=== PATIENT | female | born 1960 | race Hispanic/Latino ===

== ENCOUNTER → 2023-02-19 14:11 | Outpatient (CLI) | payer OTHER, SELFPAY ==
[2023-02-19 14:36] LABS: Add Manual Diff / Slide Review NO; Basophils Absolute Auto 100 /uL (0-100); Basophils Percent Auto 0.7 % (0-2); Eosinophils Absolute Auto 200 /uL (0-450); Eosinophils Percent Auto 2.2 % (2-4); Hematocrit 47.5 % (36-46); Lymphocytes Absolute Auto 2000 /uL (1100-4500); Lymphocytes Percent Auto 25.2 % (25-40); Mean Corpuscular HGB Conc 33.7 % (30-36); Mean Corpuscular Hemoglobin 31.9 PG (26-34); Mean Corpuscular Volume 94.5 fL (80-100); Monocytes Absolute Auto 700 /uL (0-900); Monocytes Percent Auto 8.4 % (3-14); Neutrophils Absolute Auto 5100 /uL (1500-7000); Neutrophils Percent Auto 63.5 % (50-75); Platelet Count 283 X10^3/uL (150-400); Red Blood Cell Count 5.02 X10^6/uL (4.0-5.2); Red Cell Distribution Width 13.7 % (11.6-14.8)
[2023-02-19 14:59] LABS: Alanine Aminotransferase 31 IU/L (<35); Albumin 4.5 g/dL (3.5-5.0); Albumin Globulin Ratio 1.3 (1.0-2.8); Alkaline Phosphatase 61 U/L (38-126); Aspartate Aminotransferase 30 IU/L (14-36); BUN Creatinine Ratio 21.5 (6-22); Bilirubin Total 1.2 mg/dL (0.2-1.3); Blood Urea Nitrogen 17 mg/dL (7-17); Calcium 9.5 mg/dL (8.4-10.2); Carbon Dioxide 29 mmol/L (22-32); Chloride 99 mmol/L (98-107); Cholesterol 225 mg/dL (140-199); Estimated Glomerular Filt Rate > 60 mL/min (>60); Globulin 3.4 g/dL (1.7-4.1); Glucose 103 mg/dL (80-110); HDL Cholesterol 80 mg/dL (40-60); HEMOLYSIS 23 (0-50); LDL Cholesterol Calculated 123 mg/dL (<100); Potassium 4.2 mmol/L (3.4-5.1); Sodium 138 mmol/L (137-145); Total Protein 7.9 g/dL (6.3-8.2); Triglycerides 111 mg/dL (35-150)
[2023-02-19 15:29] LABS: TSH w/ Reflex to FT4 3.08 uIU/mL (0.47-4.68)
[2023-02-20 02:36] LABS: x Labcorp Estim. Avg Glu (eAG) 117 mg/dL (.); x Labcorp Hemoglobin A1c 5.7 % (4.8-5.6)
== END ==
PROVIDERS: PCP Family Medicine; Referring Provider Family Medicine; Visit Provider Family Medicine
DX: E03.9 Hypothyroidism, unspecified (principal); E78.5 Hyperlipidemia, unspecified; F32.A Depression, unspecified; F41.1 Generalized anxiety disorder; I10 Essential (primary) hypertension; R00.2 Palpitations
CPT/HCPCS: 36415; 80053; 80061; 83036; 84443; 85025; 93005; 93010

== ENCOUNTER → 2023-03-04 09:55 | Outpatient (CLI) | payer OTHER, SELFPAY | PROVIDERS: PCP Family Medicine; Referring Provider Family Medicine; Visit Provider Family Medicine | DX: R00.2 Palpitations (principal) | CPT/HCPCS: 93246 ==

== ENCOUNTER → 2024-02-20 11:26 | Outpatient (CLI) | payer OTHER, SELFPAY ==
[2024-02-20 12:39] LABS: Hematocrit 45.6 % (36-46); Mean Corpuscular HGB Conc 32.9 % (30-36); Mean Corpuscular Hemoglobin 30.8 PG (26-34); Mean Corpuscular Volume 93.7 fL (80-100); Platelet Count 258 X10^3/uL (150-400); Red Blood Cell Count 4.87 X10^6/uL (4.0-5.2); Red Cell Distribution Width 13.8 % (11.6-14.8); White Blood Cell Count 8.6 X10^3/uL (4.5-11.0)
[2024-02-20 13:11] LABS: Hemoglobin A1C% w Est Avg Glu 6.1 % (4.0-6.0)
[2024-02-20 13:23] LABS: Neutrophils Absolute Manual 4644 /uL (3000-5900); RBC Morphology Normal Morphology; Total Cells Counted 100
[2024-02-20 14:08] LABS: Alanine Aminotransferase 36 IU/L (<35); Albumin 4.6 g/dL (3.5-5.0); Albumin Globulin Ratio 1.5 (1.0-2.8); Alkaline Phosphatase 67 U/L (38-126); Aspartate Aminotransferase 33 IU/L (14-36); Bilirubin Total 0.9 mg/dL (0.2-1.3); Blood Urea Nitrogen 23 mg/dL (7-17); Calcium 9.5 mg/dL (8.4-10.2); Carbon Dioxide 29 mmol/L (22-32); Chloride 105 mmol/L (98-107); Cholesterol 185 mg/dL (140-199); Estimated Glomerular Filt Rate > 60 mL/min (>60); Glucose 105 mg/dL (80-110); HDL Cholesterol 56 mg/dL (40-60); HEMOLYSIS < 15 (0-50); LDL Cholesterol Calculated 102 mg/dL (<100); Lipase 142 U/L (23-300); Potassium 4.2 mmol/L (3.4-5.1); Sodium 140 mmol/L (137-145); Total Protein 7.6 g/dL (6.3-8.2); Triglycerides 134 mg/dL (35-150)
[2024-02-20 14:26] LABS: TSH w/ Reflex to FT4 0.36 uIU/mL (0.47-4.68)
[2024-02-20 14:50] LABS: Free T4, Direct Thyroxine 1.72 ng/dL (0.78-2.19)
[2024-02-20 16:47] LABS: HIV 1 & 2 Ab/Ag 4th Gen Combo NEGATIVE (NEGATIVE); Hep C Virus Ab w/Reflex Quant NEGATIVE s/c (NEGATIVE)
== END ==
PROVIDERS: PCP Family Medicine; Referring Provider Family Medicine; Visit Provider Family Medicine
DX: Z11.59 Encounter for screening for other viral diseases (principal); Z11.4 Encounter for screening for human immunodeficiency virus [HIV]; Z00.00 Encounter for general adult medical examination without abnormal findings; R73.01 Impaired fasting glucose; I10 Essential (primary) hypertension; F41.1 Generalized anxiety disorder; E03.9 Hypothyroidism, unspecified
CPT/HCPCS: 36415; 80053; 80061; 83036; 83690; 84439; 84443; 85025; 86803; 87389

== ENCOUNTER → 2024-06-26 10:43 | Outpatient (CLI) | payer OTHER, SELFPAY ==
--- NOTE | 2024-06-26 10:44 | DI.US.S_ITS ---
PROCEDURE: US PELVIC COMPLETE INDICATIONS: THICKENED ENDOMETRIUM ON OUTSIDE CT TECHNIQUE: Real-time scanning was performed of the pelvic organs, with image documentation. Additional endovaginal scanning was necessary due to incomplete visualization of the adnexal and endometrial structures by transabdominal scanning. COMPARISON: Outside Facility, CT, CT ABDOMEN PELVIS W CON, 03/25/2024, 10:02. FINDINGS: Uterus: Uterus is retroverted and normal in size at 5.6 x 4.5 x 3.5 cm. The myometrium is homogeneous. The endometrium measures 6 mm combined thickness. A few uterine fibroids. For example: -Mid anterior intramural 2.2 x 2.1 x 1.6 cm. -Right anterior intramural fibroid 1.5 x 1.4 x 1.3 cm. -Mid anterior intramural fibroid 1.8 x 1.7 x 1.6 cm. Ovaries: The right ovary measures 1.4 x 1 x 0.8 cm, with a calculated ovarian volume of 6 cc. Less than 12 ovarian follicles. The left ovary ovary is not seen. Other: No pathologic free abdominal or pelvic fluid. IMPRESSION: 1. Endometrium measures 6 mm in this postmenopausal patient. Minimally thickened. -Endometrial biopsy should be considered. 2. Several small uterine fibroids. A larger fibroid measuring 2.2 cm. 3. Left ovary is not identified. No significant ovarian cyst seen. We strive to produce accurate, complete, and clear reports of imaging services. To assist us in improving patient care, this report was composed using standard report templates and voice recognition software. Therefore, it may contain abnormal punctuation, insertions and/or omissions. Occasional wrong-word or sound-alike substitutions may occur. Though we review the report and make efforts to correct it, we do recommend that the report be read carefully in proper context to recognize any text inaccuracies. Dictated by: Jarad Wills M.D. on 06/26/2024 at 15:31 Approved by: Jarad Wills M.D. on 06/26/2024 at 15:37
== END ==
PROVIDERS: PCP Family Medicine; Referring Provider Family Medicine; Visit Provider Family Medicine
DX: D25.1 Intramural leiomyoma of uterus (principal); R93.89 Abnormal findings on diagnostic imaging of other specified body structures
CPT/HCPCS: 76830; 76856

== ENCOUNTER → 2024-07-08 14:23 | Outpatient (CLI) | payer OTHER, SELFPAY ==
[2024-07-08 16:38] LABS: Influenza A - CEPHEID Flu A NEGATIVE (NEGATIVE); Influenza B - CEPHEID Flu B NEGATIVE (NEGATIVE); Respiratory Syncytial Virus Negative (Negative)
[2024-07-08 16:47] LABS: COVID-19 CEPHEID 4-PLEX PCR POSITIVE (Negative)
== END ==
PROVIDERS: PCP Family Medicine; Visit Provider Nurse Practitioner Family
DX: R05.1 Acute cough (principal)
CPT/HCPCS: 0241U; 87070

== ENCOUNTER → 2025-02-26 11:02 | Outpatient (CLI) | payer OTHER, SELFPAY ==
[2025-02-26 12:14] LABS: Add Manual Diff / Slide Review NO; Basophils Absolute Auto 100 /uL (0-100); Eosinophils Absolute Auto 200 /uL (0-450); Eosinophils Percent Auto 2.8 % (2-4); Hematocrit 43.8 % (36-46); Hemoglobin 15.1 g/dL (12.0-16.0); Lymphocytes Absolute Auto 1700 /uL (1100-4500); Lymphocytes Percent Auto 22.3 % (25-40); Mean Corpuscular HGB Conc 34.5 % (30-36); Mean Corpuscular Hemoglobin 31.9 PG (26-34); Mean Corpuscular Volume 92.4 fL (80-100); Monocytes Absolute Auto 600 /uL (0-900); Monocytes Percent Auto 8.1 % (3-14); Neutrophils Absolute Auto 5100 /uL (1500-7000); Neutrophils Percent Auto 65.8 % (50-75); Platelet Count 258 X10^3/uL (150-400); Red Blood Cell Count 4.74 X10^6/uL (4.0-5.2); Red Cell Distribution Width 13.6 % (11.6-14.8); White Blood Cell Count 7.8 X10^3/uL (4.5-11.0)
[2025-02-26 12:21] LABS: Hemoglobin A1C% w Est Avg Glu 5.4 % (4.0-6.0)
[2025-02-26 12:37] LABS: Alanine Aminotransferase 43 IU/L (<35); Albumin 4.6 g/dL (3.5-5.0); Albumin Globulin Ratio 1.6 (1.0-2.8); Alkaline Phosphatase 86 U/L (38-126); Aspartate Aminotransferase 42 IU/L (14-36); BUN Creatinine Ratio 21.1 (6-22); Bilirubin Total 1.1 mg/dL (0.2-1.3); Blood Urea Nitrogen 20 mg/dL (7-17); Calcium 9.8 mg/dL (8.4-10.2); Carbon Dioxide 28 mmol/L (22-32); Chloride 102 mmol/L (98-107); Cholesterol 218 mg/dL (140-199); Estimated Glomerular Filt Rate > 60 mL/min (>60); Globulin 2.8 g/dL (1.7-4.1); Glucose 94 mg/dL (70-99); HDL Cholesterol 90 mg/dL (40-60); HEMOLYSIS < 15 (0-50); LDL Cholesterol Calculated 106 mg/dL (<100); Potassium 4.7 mmol/L (3.4-5.1); Sodium 138 mmol/L (137-145); Total Protein 7.4 g/dL (6.3-8.2); Triglycerides 109 mg/dL (35-150)
[2025-02-26 13:01] LABS: TSH w/ Reflex to FT4 0.03 uIU/mL (0.47-4.68)
[2025-02-26 13:26] LABS: Free T4, Direct Thyroxine 1.77 ng/dL (0.78-2.19)
== END ==
PROVIDERS: PCP Family Medicine; Referring Provider Family Medicine; Visit Provider Family Medicine
DX: Z00.00 Encounter for general adult medical examination without abnormal findings (principal); R73.01 Impaired fasting glucose; E03.9 Hypothyroidism, unspecified; I10 Essential (primary) hypertension; E78.5 Hyperlipidemia, unspecified; T14.8XXA Other injury of unspecified body region, initial encounter
CPT/HCPCS: 36415; 80053; 80061; 83036; 84439; 84443; 85025

== ENCOUNTER → 2025-04-08 13:34 | Outpatient (CLI) | payer OTHER, SELFPAY ==
[2025-04-08 15:16] LABS: Erythrocyte Sedimentation Rate 1 MM/HR (0-20)
[2025-04-08 15:21] LABS: C-Reactive Protein Quant < 0.5 mg/dL (<1.0); Creatine Kinase 39 U/L (30-135); Rheumatoid Factor 14.5 IU/mL (<12.0)
[2025-04-08 15:35] LABS: Free T3, Triiodothyronine Free 3.55 pg/mL (2.77-5.27); Free T4, Direct Thyroxine 1.52 ng/dL (0.78-2.19)
[2025-04-08 15:49] LABS: Thyroid Stimulating Hormone 0.223 uIU/mL (0.47-4.68)
[2025-04-12 14:11] LABS: CCP Antibodies IgG/IgA 0 units (0-19)
[2025-04-15 13:12] LABS: ANA Screen, IFA Positive (.)
== END ==
PROVIDERS: PCP Family Medicine; Referring Provider Family Medicine; Visit Provider Family Medicine
DX: E03.8 Other specified hypothyroidism (principal); M25.50 Pain in unspecified joint; M79.10 Myalgia, unspecified site
CPT/HCPCS: 36415; 82550; 84439; 84443; 84481; 85651; 86038; 86140; 86200; 86430

== ENCOUNTER 2025-05-03 08:47 | Day surgery (SDC) | payer OTHER, SELFPAY ==
[2025-05-03 09:07] VITALS: BP 131/91; PULSE 88; RESP 18; TEMP 36.4; O2SAT 96
--- NOTE | 2025-05-03 09:17 | EKG_ITS ---
[facility] [address] [place] [id number] Test Date: 2025-05-03 Pat Name: Anne Yuan Department: [facility] Room: Gender: Female Cold Header: KARTHIK : 1960 Requested By: Order Number: [id number] Reading MD: Cordell Reynolds MD Measurements Intervals [place] Rate: 62 P: 42 UT: 132 QRS: 14 QRSD: 90 T: 41 QT: 412 QTc: 418 Interpretive Statements Normal sinus rhythm with sinus arrhythmia Minimal voltage criteria for LVH, may be normal variant ( R in aVL ) Electronically Signed On 05-03-2025 10:01:35 PDT by Cordell Reynolds MD
[2025-05-03] MEDS: LACTATED RINGERS 1,000 ML 42 ML IV (09:33)
--- NOTE | 2025-05-03 09:48 | P.HP_ITS ---
History of Present Illness History of Present Illness Date Patient Seen: 05/03/25 Chief complaint: Colonoscopy Narrative: Colorectal cancer screening FOR[facility] Medical History (Updated 03/12/25 @ 15:39 by Polo Lubin MD) IFG (impaired fasting glucose) Heavy menstrual period Irritable bowel syndrome (~2020) Diverticular disease (~2021) Colon polyps (~2020) Deep vein thrombosis (~1991) EVELYN (generalized anxiety disorder) Depression (~1996) Hypothyroidism (~2006) Hyperlipidemia Benign essential HTN Palpitations Surgical History Anesthesia History of colonoscopy (~11/21/20) History of endoscopy (~11/21/20) History of ankle surgery (~2006) Family History Father Diabetes mellitus History of heart disease Hyperlipidemia Hypertension Mental health problem Prostate cancer Mother Cancer History of heart disease Hyperlipidemia Hypertension Brother Obesity Hypertension Hyperlipidemia Sister Thyroid disease Lung disease Hypertension Hyperlipidemia Mental health problem Sister Hyperlipidemia Hypertension Social History marital status: household members: spouse lives independently: Yes occupational status: previously employed Smoking Status: Former smoker alcohol intake: current substance use type: does not use Meds Home Medications and Allergies Home Medications ?Medication ?Instructions ?Recorded ?Confirmed ?Type fluoxetine 40 mg capsule (Prozac) 40 mg PO DAILY #100 caps 07/29/24 05/03/25 Rx diazepam 5 mg tablet 5 mg PO DAILY PRN anxiety #2 0 tabs 02/06/25 05/03/25 Rx hydroxyzine HCl 25 mg tablet 12.5 - 25 mg (0.5 - 1 x 2 5 mg) PO 02/26/25 05/03/25 Rx BID PRN sleep/anxiety #30 tabs hyoscyamine sulfate 0.125 mg tablet 0.125 mg PO Q4H ME N abd pain #30 02/26/25 05/03/25 Rx tabs olmesartan 20 mg tablet 20 mg PO DAILY blood pressur e #90 02/26/25 05/03/25 Rx tabs pantoprazole 20 mg tablet,delayed 20 mg PO DAILY #90 t abs 02/26/25 05/03/25 Rx release rosuvastatin 20 mg tablet 20 mg PO DAILY for cholester ol #90 02/26/25 05/03/25 Rx Held on 04/08/25. tabs Instructions: muscle ache levothyroxine 75 mcg tablet 75 mcg PO DAILY #30 tabs 0 04/21/25 05/03/25 Rx Allergies Allergy/AdvReac Type Severity Reaction Status Date / Time codeine AdvReac Mild headache Verified 05/03/25 08:58 Sulfa (Sulfonamide AdvReac Unknown Verified 05/03/25 08:58 Antibiotics) Exam Vital Signs (past 8 hours): - 05/03/25 09:07 Temperature 97.6 F Pulse Rate 88 Respiratory Rate 18 Blood Pressure 131/91 H Pulse Oximetry 96 Oxygen Delivery Method Room Air Oxygen Delivery Method Room Air Narrative Exam Narrative: Oropharynx free of lesions Assessment & Plan Assessment & Plan narrative: Need for colorectal cancer screening. Risks, benefits, alternatives have been explained. Time-Based Coding :: [TOTAL MINUTES] spent with patient and on the chart (including review of chart, obtaining history, exam, reviewing outside data, placing orders, documenting exam and treatment plan, and counseling patient) on [DATE]. [employer]er Document charge(s): No
--- NOTE | 2025-05-03 09:49 | PM.OP.COLON ---
Operative Date/Time/Diagnoses Date of procedure: 05/03/25 Time of procedure: 10:15 Pre-op diagnosis: See indication and findings Post-op diagnosis: same Procedure & Clinicians Study performed: Colonoscopy Same procedure(s) as scheduled: Yes Indications: Colorectal cancer screening Surgeon: Polo Lubin Anesthesia Type: Sedation Procedure Notes Procedure in detail: After informed consent was obtained the patient was placed in left lateral decubitus position. The video colonoscope was introduced the rectum slowly advanced cecum. Preparation was good. On slow withdrawal mucosa was carefully examined. The scope was removed. The patient tolerated procedure well. Blood loss none Complications none Sedation mac Findings 1. Scattered sigmoid diverticulosis 2. Otherwise negative colonoscopy to cecum Patient should have follow-up colonoscopy in 5-10 years
--- NOTE | 2025-05-03 10:12 | SUR.OPER ---
COLONOSCOPE 133
[2025-05-03 10:18] VITALS: BP 108/75; PULSE 91; RESP 18; TEMP 36.2; O2SAT 93
[2025-05-03 10:23] VITALS: BP 102/75; PULSE 88; RESP 14; O2SAT 97
[2025-05-03 10:30] VITALS: BP 106/79; PULSE 86; RESP 17; O2SAT 97
== END 2025-05-03 10:50 | disposition home or self-care (01) ==
PROVIDERS: PCP Family Medicine; Referring Provider Internal Medicine Gastroenterology; Visit Provider Internal Medicine Gastroenterology
PROC: 0DJD8ZZ Inspection of Lower Intestinal Tract, Via Natural or Artificial Opening Endoscopic (ICD-10-PCS; CPT 45378; principal; 2025-05-03 10:00)
DX: Z12.11 Encounter for screening for malignant neoplasm of colon (principal); Z86.0100 Personal history of colon polyps, unspecified; K57.30 Diverticulosis of large intestine without perforation or abscess without bleeding; I10 Essential (primary) hypertension; E78.5 Hyperlipidemia, unspecified; E03.9 Hypothyroidism, unspecified; F41.9 Anxiety disorder, unspecified; K21.9 Gastro-esophageal reflux disease without esophagitis; Z87.891 Personal history of nicotine dependence
CPT/HCPCS: G0105; 93005; J2405; J2704

== ENCOUNTER → 2025-09-18 12:23 | Outpatient (CLI) | payer OTHER, SELFPAY ==
--- NOTE | 2025-09-18 12:24 | DI.MG.S_ITS ---
MM screening mammo BI: 09/18/2025. BI-RADS: 1 CLINICAL: 65-year old female for bilateral screening mammogram. Tyrer-Cuzick lifetime risk of 14.0%. Current reported family history of breast cancer: mother. PRIOR EXAMS 03/24/2024, 07/04/2022, 12/11/2019. MAMMOGRAPHY TECHNIQUE: 2D and 3D (tomosynthesis) digital mammographic views obtained, with additional images as needed for full coverage. Current study was also evaluated with a Computer Aided Detection (CAD) system. DENSITY B. There are scattered areas of fibroglandular density. MAMMOGRAPHY FINDINGS Bilateral: No suspicious mass, asymmetry, microcalcification, or other abnormality seen. No significant change from comparison. IMPRESSION: * No evidence of malignancy. RECOMMENDATIONS Bilateral * Annual screening mammography. OVERALL ASSESSMENT CATEGORY BI-RADS-1: Negative. The [employer] recommends annual screening mammography beginning at age 40 for women with average risk of breast cancer. ELECTRONICALLY SIGNED: Claudia Carbajal M.D. on 09/20/2025 at 11:30:01 AM PT Interpreting Station ID: [id number]
== END ==
PROVIDERS: PCP Family Medicine; Referring Provider Family Medicine; Visit Provider Family Medicine
DX: Z12.31 Encounter for screening mammogram for malignant neoplasm of breast (principal); Z80.3 Family history of malignant neoplasm of breast
CPT/HCPCS: 77063; 77067